=== PATIENT | male | born 1945 | race Caucasian/White ===

== ENCOUNTER → 2017-09-22 14:02 | Outpatient (CLI) | payer OTHER, SELFPAY ==
--- NOTE | 2017-09-22 | DI.US.S_ITS ---
PROCEDURE: US PERIPH VENOUS LOW EXTREM LT INDICATIONS: HISTORY OF DEEP VEIN THROMBOSIS TECHNIQUE: Real-time imaging, as well as color and pulse Doppler interrogation, were performed of the lower extremity deep veins from the inguinal ligament to the popliteal fossa. COMPARISON: None. FINDINGS: Nonocclusive, chronic appearing echogenic thrombus within the mid to distal superficial femoral and popliteal veins suggesting chronic DVT. Common femoral vein is patent. IMPRESSION: Chronic deep venous thrombosis involving the superficial femoral-popliteal veins. Dictated by: Kush AUGUSTINE Interpreted: Aldo Eaton MD on 09/22/2017 at 14:43 Approved by: Aldo Eaton M.D. on 09/22/2017 at 17:25
== END ==
PROVIDERS: Visit Provider Internal Medicine
DX: I82.512 Chronic embolism and thrombosis of left femoral vein (principal)
CPT/HCPCS: 93971

== ENCOUNTER 2020-09-20 12:34 | Emergency (ER) | payer OTHER, SELFPAY ==
[2020-09-20] VITALS (14 sets, daily range): BP systolic 153–209; BP diastolic 75–100; PULSE 57–79; RESP 13–22; TEMP 36.5; O2SAT 99–100; BMI 22.4
--- NOTE | 2020-09-20 12:45 | DI.RAD.S_ITS ---
PROCEDURE: XR CHEST 1V INDICATIONS: HTN emergency TECHNIQUE: One view of the chest was acquired. COMPARISON: [facility] [place], CR, XR SHOULDER 2+ VIEWS RIGHT, 06/14/2020, 14:47. FINDINGS: Surgical changes and devices: None. Lungs and pleura: Lungs appear clear. Question of blunting of the left costophrenic angle. No pneumothorax. Mediastinum: Mediastinal contours appear normal. Heart size is normal. Bones and chest wall: No suspicious bony lesions. Suspected prior right clavicle fracture. Overlying soft tissues appear unremarkable. IMPRESSION: Question of blunting of the left costophrenic angle. This could represent trace effusion. Suspected prior right clavicle fracture. Dictated by: Peter Collado M.D. on 09/20/2020 at 13:07 Approved by: Peter Collado M.D. on 09/20/2020 at 13:09
[2020-09-20 12:51] LABS: Add Manual Diff / Slide Review NO; Basophils Absolute Auto 0 /uL (0-100); Basophils Percent Auto 0.6 % (0-2); Eosinophils Absolute Auto 100 /uL (0-450); Eosinophils Percent Auto 2.4 % (2-4); Hematocrit 44.1 % (41-53); Hemoglobin 14.8 g/dL (13.5-17.5); Lymphocytes Absolute Auto 800 /uL (1100-4500); Lymphocytes Percent Auto 13.3 % (25-40); Mean Corpuscular HGB Conc 33.6 % (30-36); Mean Corpuscular Hemoglobin 32.4 PG (26-34); Mean Corpuscular Volume 96.3 fL (80-100); Monocytes Absolute Auto 800 /uL (0-900); Monocytes Percent Auto 14.4 % (3-14); Neutrophils Absolute Auto 3900 /uL (1500-7000); Neutrophils Percent Auto 69.3 % (50-75); Platelet Count 194 X10^3/uL (150-400); Red Blood Cell Count 4.57 X10^6/uL (4.5-5.9); White Blood Cell Count 5.7 X10^3/uL (4.5-11.0)
[2020-09-20] MEDS: SODIUM CHLORIDE 0.9% 1,000 ML 125 ML IV (13:06)
[2020-09-20 13:08] LABS: Alanine Aminotransferase 15 IU/L (<50); Albumin 4.3 g/dL (3.5-5.0); Albumin Globulin Ratio 1.5 (1.0-2.8); Alkaline Phosphatase 42 U/L (38-126); Aspartate Aminotransferase 30 IU/L (17-59); BUN Creatinine Ratio 19.5 (6-22); Bilirubin Total 0.8 mg/dL (0.2-1.3); Blood Urea Nitrogen 15 mg/dL (9-20); Calcium 9.4 mg/dL (8.4-10.2); Carbon Dioxide 26 mmol/L (22-32); Chloride 96 mmol/L (98-107); Creatine Kinase 117 U/L (55-170); Estimated Glomerular Filt Rate > 60.0 mL/min (>60); Globulin 2.9 g/dL (1.7-4.1); Glucose 151 mg/dL (80-110); HEMOLYSIS < 15 (0-50); Sodium 130 mmol/L (137-145); Total Protein 7.2 g/dL (6.3-8.2)
--- NOTE | 2020-09-20 13:14 | ED.DIZZY ---
HPI - Dizziness General Chief Complaint: Dizziness Stated Complaint: Bent over, felt dizzy Time Seen by Provider: 09/20/20 12:44 Source: patient Mode of arrival: EMS Limitations: no limitations History of Present Illness HPI Narrative: 75-year-old male nonsmoker with history of what sounds like a bifascicular block presents by EMS for evaluation of a very brief episode of dizziness earlier today. He states he had a very normal morning, was quite active in even engaged in a strenuous workout. He had completed his activities and was working in the garden when he went into the [place] and leaned over to pick something up at which point he became dizzy as if things were spinning for 5-7 seconds. It went away as quick as it started and has not been present since. He denies any recent trauma or head injuries. He has got no blurred vision or trouble with speech. He has no chest pain, palpitations or shortness of breath. He denies any abdominal pain, nausea or vomiting. He denies recent air travel, upper respiratory symptoms including runny nose, sneezing or ear pain. He is otherwise well and free of complaint. He states that he has had a few episodes not on like this over the past 20 years or so but they are very sporadic. He has seen a custom bike builder about this and they have had discussions about the potential of monitoring but because his symptoms are so brief and widespread that they elected not to as it is not likely to be helpful. complaint: dizziness Onset (ago): hour(s) Related Data Allergies Allergy/AdvReac Type Severity Reaction Status Date / Time No Known Drug Allergies Allergy Verified 09/20/20 12:42 Review of Systems Constitutional Constitutional: Denies chills, Denies fatigue, Denies fever(s), Denies frequent falls, Denies lethargy and Denies weakness Eyes Eyes: Denies change in vision, Denies eye discharge, Denies irritation and Denies loss of vision ENT Ears, Nose, Mouth, and Throat: Denies change in voice, Reports dizziness, Denies neck pain, Denies sore throat and Denies throat swelling Cardiovascular Cardiovascular: Denies chest pain, Denies irregular heart rhythm, Denies lightheadedness, Denies palpitations, Denies dyspnea, Denies dyspnea on exertion and Denies orthopnea Respiratory Respiratory: Denies cough, Denies dyspnea, Denies dyspnea on exertion and Denies wheezing Gastrointestinal Gastrointestinal: Denies abdominal pain, Denies change in bowel habits, Denies diarrhea, Denies nausea and Denies vomiting Musculoskeletal Musculoskeletal: Denies neck pain and Denies numbness Integumentary/Breasts Skin/Breast: Denies pruritus, Denies erythema, Denies rash and Denies wounds Neurologic Neurologic: Denies behavioral changes, Denies confusion, Reports dizziness, Denies frequent falls, Denies loss of vision, Denies numbness and Denies weakness Psychiatric Psychiatric: Denies anxiety, Denies behavioral changes, Denies confusion, Denies depression, Denies homicidal ideation and Denies suicidal ideation Endocrine Endocrine: Denies fatigue, Denies flushing and Denies palpitations Hematologic/Lymphatic Hematologic/Lymphatic: Denies easy bruising Allergic/Immunologic Allergic/Immunologic: Denies urticaria, Denies throat swelling and Denies wheezing Patient History Social History Smoking Status: Unknown if ever smoked Smoking Status: Unknown if ever smoked alcohol intake frequency: holidays/special occasions only Substance Use Type: does not use Exam Narrative Exam Narrative: GENERAL: [75] year old patient appears stated age. Well-developed patient, in mild distress. HEAD: Atraumatic. Normocephalic. EYES: Pupils equal round and reactive. Extraocular motions intact. No scleral icterus. No injection or drainage. ENT: Nose without bleeding, purulent drainage. Throat without erythema, tonsillar hypertrophy or exudate. Airway patent. NECK: Trachea midline. Non tender CARDIOVASCULAR: Regular rate and rhythm without murmurs, gallops, or rubs. RESPIRATORY: Clear to auscultation. Breath sounds equal bilaterally. No wheezes, rales, or rhonchi. GASTROINTESTINAL: Abdomen soft, non-tender, nondistended. EXTREMITIES: No edema or joint tenderness. BACK: Nontender without deformity or crepitance. No flank tenderness. NEURO: AOx3. SKIN: No rash or erythema of visible areas NIH Stroke Scale 1a. LOC: Patient is alert and keenly responsive (0) 1b. LOC Questions: Patient answers both LOC questions accurately (0) 1c. LOC Commands: Patient performs both tasks correctly (0) 2. Best Gaze: Normal (0) 3. Visual: No visual loss (0) 4. Facial palsy: Normal symmetrical movements (0) 5. Motor arm: No drift (0) 6. Motor leg: No drift (0) 7. Limb ataxia: Absent (0) 8. Sensory: Normal (0) 9. Best language: No aphasia; normal (0) 10. Dysarthria: Normal (0) 11. 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) Stat Sodium Chloride (Normal Saline 0.9%) 1,000 mls @ 125 mls/hr IV CONT SHELBY Last Admin: 09/20/20 13:06 Dose: 125 mls/hr Documented by: NAYANA Vital Signs Vital signs: Vital Signs - 8 hr 09/20/20 12:38 09/20/20 12:42 09/20/20 12:45 Temperature 97.7 F Pulse Rate 79 72 67 Respiratory Rate 13 15 18 Blood Pressure 209/100 H 208/97 H Pulse Oximetry 99 100 100 09/20/20 13:00 09/20/20 13:16 09/20/20 13:30 Temperature Pulse Rate 62 60 59 L Respiratory Rate 15 22 17 Blood Pressure 194/85 H 177/85 H 183/81 H Pulse Oximetry 100 100 100 09/20/20 13:45 09/20/20 14:00 09/20/20 14:20 Temperature Pulse Rate 57 L 57 L 59 L Respiratory Rate 18 19 20 Blood Pressure 168/83 H 153/81 H 205/89 H Pulse Oximetry 100 100 99 09/20/20 14:30 09/20/20 14:31 09/20/20 14:45 Temperature Pulse Rate 59 L 65 65 Respiratory Rate 16 19 19 Blood Pressure 183/88 H 178/84 H Pulse Oximetry 100 100 99 09/20/20 15:00 09/20/20 15:15 Temperature Pulse Rate 66 62 Respiratory Rate 17 18 Blood Pressure 182/75 H Pulse Oximetry 100 99 MDM - Dizziness Lab Data Result diagrams: 09/20/20 12:40 09/20/20 12:40 Labs: Lab Results 09/20/20 09/20/20 09/20/20 Range/Units 12:40 12:40 12:49 WBC 5.7 (4.5-11.0) X10^3/uL RBC 4.57 (4.5-5.9) X10^6/uL Hgb 14.8 (13.5-17.5) g/dL Hct 44.1 (41-53) % MCV 96.3 (80-100) fL MCH 32.4 (26-34) PG MCHC 33.6 (30-36) % RDW 13.0 (11.6-14.8) % Plt Count 194 (150-400) X10^3/uL Neut % (Auto) 69.3 (50-75) % Lymph % (Auto) 13.3 L (25-40) % [place] % (Auto) 14.4 H (3-14) % Eos % (Auto) 2.4 (2-4) % Baso % (Auto) 0.6 (0-2) % Neut # (Auto) 3900 (2725-2904) /uL Lymph # (Auto) 800 L (3187-4951) /uL [place] # (Auto) 800 (0-900) /uL Eos # (Auto) 100 (0-450) /uL Baso # (Auto) 0 (0-100) /uL Sodium 130 L (137-145) mmol/L Potassium 4.0 (3.4-5.1) mmol/L Chloride 96 L (98-107) mmol/L Carbon Dioxide 26 (22-32) mmol/L BUN 15 (9-20) mg/dL Creatinine 0.77 (0.66-1.25) mg/dL Estimated GFR > 60.0 (>60) mL/min BUN/Creatinine Ratio 19.5 (6-22) Glucose 151 H (80-110) mg/dL Calcium 9.4 (8.4-10.2) mg/dL Total Bilirubin 0.8 (0.2-1.3) mg/dL AST 30 (17-59) IU/L ALT 15 (<50) IU/L Alkaline Phosphatase 42 (38-126) U/L Total Creatine Kinase 117 (55-170) U/L CK-MB (CK-2) 2.47 H (<2.37) ng/mL CK-MB (CK-2) Rel Index 2.1 (1.5-5.0) % Troponin I < 0.012 (0.01-0.034) ng/mL NT-Pro-B Natriuret Pep 190 (<450) pg/mL Total Protein 7.2 (6.3-8.2) g/dL Albumin 4.3 (3.5-5.0) g/dL Globulin 2.9 (1.7-4.1) g/dL Albumin/Globulin Ratio 1.5 (1.0-2.8) SARS-CoV-2 (PCR) Negative (Negative) Imaging Data Chest x-ray: Radiologist's Impression: Billy Garcia 75 M [address] [id number] ReportSigned Patient: Padilla Garcia#: [id number]: 5Acct:[id number]/Sex: 75 / MDate of Service: 09/20/20Loc: EDAccession Number: [id number] Procedure: XR chest 1V Ordering Provider: Sukhdeep Garcia D.O. PROCEDURE: XR CHEST 1V INDICATIONS: HTN emergency TECHNIQUE: One view of the chest was acquired. COMPARISON: [facility] [place], CR, XR SHOULDER 2+ VIEWS RIGHT, 06/14/2020, 14:47. FINDINGS: Surgical changes and devices: None. Lungs and pleura: Lungs appear clear. Question of blunting of the left costophrenic angle. No pneumothorax. Mediastinum: Mediastinal contours appear normal. Heart size is normal. Bones and chest wall: No suspicious bony lesions. Suspected prior right clavicle fracture. Overlying soft tissues appear unremarkable. IMPRESSION: Question of blunting of the left costophrenic angle. This could represent trace effusion. Suspected prior right clavicle fracture. Dictated by: Peter Collado M.D. on 09/20/2020 at 13:07 Approved by: Peter Collado M.D. on 09/20/2020 at 13:09 [facility] Narrative Medical decision making narrative: Patient had a very brief (5-7 seconds) episode of dizziness after leaning over. No recurrence of symptoms. Otherwise well. Neurologic exam at baseline. Patient is hypertensive on arrival but no longer symptomatic, it would seem very unlikely the blood pressure is related. Labs are very reassuring. Return precautions given and questions answered to their apparent satisfaction Discharge Plan Departure Patient Disposition: Home Clinical Impression: Dizziness Instructions: DI for Dizziness-Nonvertigo Activity Restrictions/Additional Instructions: *You have been diagnosed with [episode of dizziness] *What to do: *Please continue to take your regular medications as directed. [ ] New medication prescriptions sent to your pharmacy: [ ] [ ] New medication written as a paper prescription [ ] No new medications given *Please follow up with your primary care provider in 2-3 days, call for an appointment. Let them know you were seen in the Emergency Department and that we ask that you be seen in follow up. We will electronically transmit a record of today's note if your PCP is in our system *If you do not have a primary care provider please contact the [facility] Resource line at [phone]. They will ask some questions about your medical history and help get you set up with a doctor in the community. *Return to Emergency Department if you should have any new, worsening or concerning symptoms, such as [fever greater than 101 F, shaking chills, worsening pain, persistent vomiting or other bothersome symptoms] Referrals: Briana Thayer MD [Primary Care Provider] -
[2020-09-20 13:18] LABS: NT-proBNP (BNP-Adult 18+) 190 pg/mL (<450); Troponin I < 0.012 ng/mL (0.01-0.034)
[2020-09-20 13:23] LABS: CKMB % Relative Index 2.1 % (1.5-5.0); Creatine Kinase MB 2.47 ng/mL (<2.37)
[2020-09-20 13:46] LABS: COVID19 - ADMIT (NP swab/PCR) Negative (Negative)
== END 2020-09-20 15:29 | disposition home or self-care (01) ==
PROVIDERS: Emergency Provider Emergency Medicine; PCP Internal Medicine
DX: R42 Dizziness and giddiness (principal); Z20.822 Contact with and (suspected) exposure to COVID-19; I10 Essential (primary) hypertension
CPT/HCPCS: 36415; 71045; 80053; 82550; 82553; 83880; 84484; 85025; 87635; 93005; 93010; 99284; C9803

== ENCOUNTER 2023-09-23 18:56 | Inpatient (IN) | payer OTHER, SELFPAY ==
[2023-09-23] VITALS (13 sets, daily range): BP systolic 178–227; BP diastolic 77–98; PULSE 61–67; RESP 14–28; TEMP 36.7; O2SAT 95–99; BMI 23.1
--- NOTE | 2023-09-23 19:10 | EKG_ITS ---
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
[2023-09-23 19:21] LABS: Add Manual Diff / Slide Review NO; Basophils Absolute Auto 0 /uL (0-100); Basophils Percent Auto 0.2 % (0-2); Eosinophils Absolute Auto 0 /uL (0-450); Eosinophils Percent Auto 0.1 % (2-4); Hematocrit 47.2 % (41-53); Lymphocytes Absolute Auto 600 /uL (1100-4500); Mean Corpuscular HGB Conc 33.9 % (30-36); Mean Corpuscular Hemoglobin 32.7 PG (26-34); Mean Corpuscular Volume 96.4 fL (80-100); Monocytes Absolute Auto 800 /uL (0-900); Neutrophils Absolute Auto 10000 /uL (1500-7000); Neutrophils Percent Auto 87.7 % (50-75); Platelet Count 204 X10^3/uL (150-400); Red Blood Cell Count 4.89 X10^6/uL (4.5-5.9); Red Cell Distribution Width 13.5 % (11.6-14.8); White Blood Cell Count 11.4 X10^3/uL (4.5-11.0)
--- NOTE | 2023-09-23 19:22 | ED_ITS ---
HPI - General Adult General Chief complaint: Abdominal Pain Stated complaint: abd pain Time Seen by Provider: 09/23/23 18:59 Source: patient Mode of arrival: Ambulatory History of Present Illness HPI narrative: 78-year-old gentleman with a history of bifascicular block, hypertension but otherwise healthy who presents complaining of severe abdominal pain that started last night initially described a bit of burning he took some Tums with no effect, tried some Flaca-Vaughan that did seem to help a bit more. He had a bowel movement this morning and again this afternoon which did not relieve his pain. He states he has not been passing much flatus but has been having quite a bit of burping which is unusual for him. He notes that his mouth has been so dry that he tried to eat some crackers this evening and was not able to do so. He has been drinking water all day. He describes moderate nausea. The abdominal pain he describes as through the entire middle of his belly constant and progressively worsening. No chest pain, palpitations, fevers, lower extremity edema are noted. Related Data Allergies Allergy/AdvReac Type Severity Reaction Status Date / Time No Known Drug Allergies Allergy Verified 09/23/23 19:09 Review of Systems Review of Systems Narrative: Pertinent positive and negative findings as per HPI Patient History Medical History (Updated 09/24/23 @ 00:41 by Lizbeth Kidd MD) Bifascicular block Hypertension Social History Smoking Status: Never smoker Smoking Status: Never smoker alcohol intake frequency: 0-2 drinks per day Alcohol type: beer Substance Use Type: does not use Exam Initial Vital Signs Initial Vital Signs: Vital Signs Pulse Rate 67 09/23/23 19:01 Pulse Oximetry 99 09/23/23 19:01 General: Healthy appearing, in mild distress. Able to give a complete and coherent history. Well-nourished well-developed HEENT: Dry mucous membranes, normal sclera with reactive pupils, Respiratory: Lungs are clear to auscultation, no wheezing no rales no rhonchi. Full and symmetrical air movement Cardiac: Regular rate and rhythm no murmurs no bruits Abdomen: Soft, mild midabd distention with mild tenderness to palpation but no rebound or guarding, decreased bowel tones Skin: Warm and dry, no rashes Neurologic: Grossly neurologically intact with no obvious asymmetries or abnormalities Extremities: No trauma, well perfused, no lower extremity edema but he does have mild chronic venous stasis changes Psych: Cooperative, appropriate insight and affect Course Orders Ordered: ED Orders 09/23/23 19:07 EKG-12 Lead Stat 09/23/23 19:08 Complete Blood Count AUTO DIFF Stat Comprehensive Metabolic Panel Stat Lipase Stat 09/23/23 20:50 Urine Microscopic Stat 09/23/23 21:28 CT abdomen pelvis w con Stat Hydromorphone HCl (Hydromorphone 0.5 Mg Inj) 0.5 mg IV Q15MIN PRN PRN Reason: Pain, Last Admin: 09/23/23 19:54 Dose: 0.5 mg Documented By: Ondansetron HCl (Ondansetron 4 Mg/2 Ml Inj) 4 mg IV NOW PRN PRN Reason: Nausea And Vomiting Last Admin: 09/23/23 19:53 Dose: 4 mg Documented By: Ondansetron HCl (Ondansetron 4 Mg Odt) 4 mg PO NOW PRN PRN Reason: Nausea And Vomiting Discontinued Medications Sodium Chloride (Normal Saline 0.9%) 1,000 mls @ 1,000 mls/hr IV BOLUS ONE Stop: 09/23/23 20:36 Last Infusion: 09/23/23 20:59 Dose: Infused Documented By: Admin: 09/23/23 19:53 Dose: 1,000 mls/hr Documented By: Vital Signs Vital signs: Vital Signs - 8 hr 09/23/23 19:01 09/23/23 19:02 09/23/23 19:02 Temperature Pulse Rate 67 64 Respiratory Rate Blood Pressure 227/97 H Pulse Oximetry 99 98 Oxygen Delivery Method 09/23/23 19:03 09/23/23 19:30 09/23/23 19:30 Temperature 98.0 F Pulse Rate 65 66 Respiratory Rate 18 28 H Blood Pressure 227/97 H 213/98 H Pulse Oximetry 99 98 Oxygen Delivery Method Room Air 09/23/23 20:00 09/23/23 20:00 09/23/23 20:30 Temperature Pulse Rate 61 61 Respiratory Rate 14 16 Blood Pressure 182/83 H Pulse Oximetry 97 99 Oxygen Delivery Method 09/23/23 20:30 09/23/23 21:00 09/23/23 21:01 Temperature Pulse Rate 61 Respiratory Rate 16 Blood Pressure 209/88 H 200/81 H Pulse Oximetry 98 Oxygen Delivery Method 09/23/23 21:01 09/23/23 21:30 09/23/23 21:30 Temperature Pulse Rate 63 62 Respiratory Rate 21 16 Blood Pressure 204/83 H Pulse Oximetry 95 95 Oxygen Delivery Method 09/23/23 22:04 09/23/23 22:30 09/23/23 23:00 Temperature Pulse Rate 64 62 64 Respiratory Rate 23 19 26 H Blood Pressure Pulse Oximetry 98 96 96 Oxygen Delivery Method 09/23/23 23:12 09/23/23 23:12 Temperature Pulse Rate 62 Respiratory Rate 19 Blood Pressure 178/77 H Pulse Oximetry 96 Oxygen Delivery Method Medical Decision Making Lab Data 09/23/23 19:08 09/23/23 19:08 Labs: Lab Results 09/23/23 09/23/23 Range/Units 19:08 20:50 WBC 11.4 H (4.5-11.0) X10^3/uL RBC 4.89 (4.5-5.9) X10^6/uL Hgb 16.0 (13.5-17.5) g/dL Hct 47.2 (41-53) % MCV 96.4 (80-100) fL MCH 32.7 (26-34) PG MCHC 33.9 (30-36) % RDW 13.5 (11.6-14.8) % Plt Count 204 (150-400) X10^3/uL Neut % (Auto) 87.7 H (50-75) % Lymph % (Auto) 5.0 L (25-40) % [place] % (Auto) 7.0 (3-14) % Eos % (Auto) 0.1 L (2-4) % Baso % (Auto) 0.2 (0-2) % Neut # (Auto) 79541 H (4599-3608) /uL Lymph # (Auto) 600 L (8222-3410) /uL [place] # (Auto) 800 (0-900) /uL Eos # (Auto) 0 (0-450) /uL Baso # (Auto) 0 (0-100) /uL Sodium 135 L (137-145) mmol/L Potassium 4.4 (3.4-5.1) mmol/L Chloride 98 (98-107) mmol/L Carbon Dioxide 29 (22-32) mmol/L BUN 20 (9-20) mg/dL Creatinine 0.89 (0.66-1.25) mg/dL Estimated GFR > 60 (>60) mL/min BUN/Creatinine Ratio 22.5 H (6-22) Glucose 106 (80-110) mg/dL Calcium 9.8 (8.4-10.2) mg/dL Total Bilirubin 1.1 (0.2-1.3) mg/dL AST 37 (17-59) IU/L ALT 19 (<50) IU/L Alkaline Phosphatase 57 (38-126) U/L Total Protein 8.3 H (6.3-8.2) g/dL Albumin 4.9 (3.5-5.0) g/dL Globulin 3.4 (1.7-4.1) g/dL Albumin/Globulin Ratio 1.4 (1.0-2.8) Lipase 55 (23-300) U/L Urine RBC None seen (0-5/HPF) Urine WBC None seen (0-5/HPF) Ur Squamous Epith Cells 0-1 /hpf (0-5/HPF) Amorphous Sediment 2+ Urine Bacteria None seen (None) Ur Culture Indicated? Cult not indicated Vol Urine Centrifuged 10ml (spun) Urine Dip Bedside Urine Glucose Negative Bedside Urine Bilirubin - Negative Bedside Urine Ketone ++ 40 Urine Specific [place] 1.015 Bedside Urine Occult Blood - Negative Bedside Urine pH 7.5 Bedside Urine Protein - Negative Bedside Urine Urobilinogen - Negative Bedside Urine Nitrite - Negative Bedside Urine Leukocytes - Negative Esterase Point of care testing: Urine Dip Bedside Urine Glucose Negative Bedside Urine Bilirubin - Negative Bedside Urine Ketone ++ 40 Urine Specific [place] 1.015 Bedside Urine Occult Blood - Negative Bedside Urine pH 7.5 Bedside Urine Protein - Negative Bedside Urine Urobilinogen - Negative Bedside Urine Nitrite - Negative Bedside Urine Leukocytes - Negative Esterase Imaging Data CT scan - abdomen/pelvis: Radiologist's Impression: PROCEDURE: CT ABDOMEN PELVIS W CON INDICATIONS: mid abdominal pain TECHNIQUE: After the administration of intravenous contrast, axial sections acquired from the lung bases to the pubic symphysis. Coronal and sagittal reformats were performed. For radiation dose reduction, the following was used: automated exposure control, adjustment of mA and/or kV according to patient size. COMPARISON: None. FINDINGS: Image quality: Diagnostic. Lower Chest: No significant findings. ABDOMEN: Liver: No solid mass. Gallbladder: No radiopaque gallstones or wall thickening. Biliary ducts: No biliary dilation. Pancreas: No ductal dilation. Spleen: Size is within normal limits. Calcified splenic granulomas. Adrenal Glands: No adrenal nodules. Kidneys and Ureters: No hydronephrosis. No solid mass. No complex renal cystic lesion which requires follow up. Bilateral ureters appear non-dilated throughout its expected course without ureteral stones visualized. Stomach and Bowel: Colonic diverticulosis without acute diverticulitis. No appendix. There are multiple moderately dilated loops of small bowel with differential air-fluid level. No significant wall thickening. A definite transition point not visualized although there is a possible region of transition point in the left mid abdomen (22/series 3). Peritoneum: No abnormal intraperitoneal fluid. No free air. Ventral Wall: No significant ventral hernia. Abdominal Nodes: No retroperitoneal or mesenteric adenopathy by size criteria. Vessels: Aorta and inferior vena cava are normal in size. PELVIS: Pelvic Organs: Unremarkable. Bladder: No bladder wall thickening, accounting for underdistention. Pelvic Nodes: No enlarged lymph nodes. Miscellaneous: No inguinal hernias are seen. Bones: No aggressive osseous abnormality. No acute vertebral body compression fractures. Multilevel spondylitic changes throughout the imaged spine. No suspicious osseous lesions. IMPRESSION: Findings consistent with small-bowel obstruction with suspected transition point noted in the left mid abdomen. Colonic diverticulosis without acute diverticulitis. Normal appendix. Other chronic findings as above. Dictated by: Tommy Francis M.D. on 09/23/2023 at 23:40 MDM Narrative Medical decision making narrative: CC: Mid abdominal pain with distention increasing since last night Complicating co-morbidities: Hypertension, patient does have a history of a Schatzki ring that is apparently in need of dilation and he has been discussing that with his it operations specialist recently Data collected from: patient, Medical records reviewed: Minimal records are available. He was seen in 2018 after a brief dizzy spell that had no significant findings are resolution Differential considered: Bowel obstruction, internal hernia, abscess, neoplastic process Exam documented above, pertinent findings include: Patient is alert and cooperative. Mild distention to the abdomen with tenderness throughout the entire center portion of the abdomen but no rebound or guarding. No flank pain. Lab Test results independently reviewed as above. Pertinent findings: CBC shows mild leukocytosis with left shift, no anemia Chemistries are reassuring with normal liver studies Urine dip Is unremarkable Independently reviewed EKG: Sinus rhythm at a rate of 63. Bifascicular block. No acute ischemic changes Imaging studies independently reviewed: small-bowel obstruction with suspected transition point noted in the left mid abdomen. Consultations: Discussed with Dr. Patton Treatments: NG tube placement, fluids, Dilaudid, Zofran Procedure: NG tube placement by physician. Initial placement coiled in the back of his throat. Using lidocaine gel and appropriate positioning, the NG tube was repositioned and measured, placed through the left nostril and with gentle pressure was advanced into the stomach. Placement was confirmed with x- ray. Patient tolerated the procedure well. Discussion: 78-year-old otherwise healthy gentleman hypertension is his only issue who presents with increasing abdominal pain and CT scan shows small bowel obstruction. NG tube was placed after long discussion with the patient his explaining the anatomy in the concerns as well as anticipated need for hospital admission. Care is reviewed with Dr. Patton who will consult on the patient tomorrow. Patient will be admitted to the medicine service for conservative management of his small bowel obstruction. Care is discussed with Dr. Ridley who will admit the patient. Discharge Plan Departure Patient Disposition: Admitted As Inpatient Clinical Impression: Small bowel obstruction
[2023-09-23 19:38] LABS: Alanine Aminotransferase 19 IU/L (<50); Albumin 4.9 g/dL (3.5-5.0); Albumin Globulin Ratio 1.4 (1.0-2.8); Alkaline Phosphatase 57 U/L (38-126); Aspartate Aminotransferase 37 IU/L (17-59); BUN Creatinine Ratio 22.5 (6-22); Bilirubin Total 1.1 mg/dL (0.2-1.3); Blood Urea Nitrogen 20 mg/dL (9-20); Calcium 9.8 mg/dL (8.4-10.2); Carbon Dioxide 29 mmol/L (22-32); Chloride 98 mmol/L (98-107); Estimated Glomerular Filt Rate > 60 mL/min (>60); Globulin 3.4 g/dL (1.7-4.1); Glucose 106 mg/dL (80-110); HEMOLYSIS < 15 (0-50); Lipase 55 U/L (23-300); Potassium 4.4 mmol/L (3.4-5.1); Sodium 135 mmol/L (137-145); Total Protein 8.3 g/dL (6.3-8.2)
[2023-09-23] MEDS: SODIUM CHLORIDE 0.9% 1,000 ML 1000 ML IV (19:53)
[2023-09-23] MEDS: ONDANSETRON 4 MG/2 ML INJ IV (19:53)
[2023-09-23] MEDS: HYDROMORPHONE 0.5 MG INJ IV (19:54)
[2023-09-23 21:11] LABS: Amorphous Sediment Urine 2+; Bacteria Urine None Seen; RBC Urine None Seen (0-5/HPF); Squamous Epithelial Cell Urine 0-1 /HPF (0-5/HPF); Urine Volume 10mL (spun); WBC Urine None Seen (0-5/HPF)
[2023-09-23 21:12] LABS: Culture Indicated Urine Cult Not Indicated
--- NOTE | 2023-09-23 21:28 | DI.CT.S_ITS ---
PROCEDURE: CT ABDOMEN PELVIS W CON INDICATIONS: mid abdominal pain TECHNIQUE: After the administration of intravenous contrast, axial sections acquired from the lung bases to the pubic symphysis. Coronal and sagittal reformats were performed. For radiation dose reduction, the following was used: automated exposure control, adjustment of mA and/or kV according to patient size. COMPARISON: None. FINDINGS: Image quality: Diagnostic. Lower Chest: No significant findings. ABDOMEN: Liver: No solid mass. Gallbladder: No radiopaque gallstones or wall thickening. Biliary ducts: No biliary dilation. Pancreas: No ductal dilation. Spleen: Size is within normal limits. Calcified splenic granulomas. Adrenal Glands: No adrenal nodules. Kidneys and Ureters: No hydronephrosis. No solid mass. No complex renal cystic lesion which requires follow up. Bilateral ureters appear non-dilated throughout its expected course without ureteral stones visualized. Stomach and Bowel: Colonic diverticulosis without acute diverticulitis. No appendix. There are multiple moderately dilated loops of small bowel with differential air-fluid level. No significant wall thickening. A definite transition point not visualized although there is a possible region of transition point in the left mid abdomen (22/series 3). Peritoneum: No abnormal intraperitoneal fluid. No free air. Ventral Wall: No significant ventral hernia. Abdominal Nodes: No retroperitoneal or mesenteric adenopathy by size criteria. Vessels: Aorta and inferior vena cava are normal in size. PELVIS: Pelvic Organs: Unremarkable. Bladder: No bladder wall thickening, accounting for underdistention. Pelvic Nodes: No enlarged lymph nodes. Miscellaneous: No inguinal hernias are seen. Bones: No aggressive osseous abnormality. No acute vertebral body compression fractures. Multilevel spondylitic changes throughout the imaged spine. No suspicious osseous lesions. IMPRESSION: Findings consistent with small-bowel obstruction with suspected transition point noted in the left mid abdomen. Colonic diverticulosis without acute diverticulitis. Normal appendix. Other chronic findings as above. Dictated by: Tommy Francis M.D. on 09/23/2023 at 23:40 Approved by: Tommy Francis M.D. on 09/23/2023 at 23:46
[2023-09-24] VITALS (14 sets, daily range): BP systolic 116–184; BP diastolic 45–86; PULSE 57–77; RESP 12–20; TEMP 36.2–36.8; O2SAT 91–99; BMI 23.1
--- NOTE | 2023-09-24 | DI.RAD.S_ITS ---
PROCEDURE: XR ABDOMEN 1V INDICATIONS: POST SURGERY NEEDLE COUNT VERIFICATION TECHNIQUE: One view of the abdomen acquired. COMPARISON: [facility], CR, XR ABDOMEN 1V, 09/24/2023, 20:34. FINDINGS: Surgical changes and devices: Multiple skin javier noted along vertical ventral abdominal incision. Additional skin javier noted in the right lower quadrant and right lower pelvis. No curvilinear radiopaque soft tissue densities to suggest presence of a surgical needle. Bowel: Bowel gas pattern is normal. Soft tissues: No suspicious abdominal calcifications. Visualized solid organ contours appear normal in size. Bones: No suspicious bony lesions. IMPRESSION: No acute abnormality. Multiple surgical skin javier. No other radiopaque soft tissue foreign body identified. Dictated by: Tommy Francis M.D. on 09/24/2023 at 21:32 Approved by: Tommy Francis M.D. on 09/24/2023 at 21:33
--- NOTE | 2023-09-24 | PATH_ITS ---
[facility] Accession Number: [id number] No. of containers..01 Tissue . 01 Material submitted: . small bowel - SMALL BOWEL, SEGMENTAL RESECTION . 01 Diagnosis: SMALL BOWEL, SEGMENTAL RESECTION: 1. Segment of small bowel with congestion, marked active inflammation including inflammatory exudates, and areas of mucosal necrosis. 2. Two benign reactive lymph nodes. See comment. . Specimen Comments: Mucosal necrosis focally closely approximates the resection margin. [facility] 09/30/2023 1834 Local . 01 Electronically signed: . Florentino Eden MD, Pathologist NPI- [id number] . 01 Gross description: . Received in formalin labeled with two patient identifiers and designated small bowel, and consists of a 31.5 cm in length by 2.8 cm in diameter segment of small bowel, which is stapled at both ends. The resection margins are arbitrarily differentially inked. The serosal surface is lam, slightly dusky, and diffusely speckled with hemorrhage. The bowel wall ranges from 0.1 up to 0.2 cm in thickness, and there is an 11 cm in length central portion of bowel which is slightly thinned, this area is further located 7.5 and 10.5 cm from the nearest resection margin. The mucosa has the normal intestinal folds and is diffusely hemorrhagic. No perforation, luminal narrowing, or constrictions are appreciated. There is an abundant amount of yellow lobulated mesenteric adipose tissue, and sectioning through the mesenteric vessels shows no areas of clot or occlusion. There are two lymph node candidates measuring 0.2 and 0.4 cm in greatest dimension. [employer] Structural [employer] sections are submitted: . A1: Differentially inked resection margins. A2: Aircraft Structural Design Engineer sections from mid portion of slightly thinned bowel. A3: Additional random section of bowel and two lymph node candidates. ([id number]) /MRV 09/30/2023 1834 Local . 01 Pathologist provided ICD-10: K56.2 . 01 CPT . 374698 Specimen Comment: A courtesy copy of this report has been sent to [phone] Performed at: [address] [id number] MD Florentino Eden MD Phone: [phone]
[2023-09-24] MEDS: HYDROMORPHONE 0.5 MG INJ IV ×4 (00:55→15:21)
[2023-09-24] MEDS: SODIUM CHLORIDE 0.9% 1,000 ML 150 ML IV (00:56)
[2023-09-24] MEDS: LIDOCAINE 2% (GLYDO) 6 ML GEL TOP ×2 (00:57→01:58)
--- NOTE | 2023-09-24 01:15 | PC.NURSE ---
Resitance found when placing NG tube, Bernabe CRUZ at bedside.
--- NOTE | 2023-09-24 02:05 | DI.RAD.S_ITS ---
PROCEDURE: XR CHEST 1V INDICATIONS: NG placement TECHNIQUE: One view of the chest was acquired. COMPARISON: [facility], CR, XR CHEST 1V, 09/20/2020, 12:47. FINDINGS: Surgical changes and devices: NG tube tip is projecting in the region of gastroesophageal junction, can be advanced by 5-10 cm. Lungs and pleura: Ill-defined airspace opacities in bilateral infrahilar region are seen concerning for small lower lobe infiltrates. No significant pleural effusion. No gross pneumothorax. Mediastinum: Mediastinal contours appear normal. Heart size is normal. Bones and chest wall: No suspicious bony lesions. Overlying soft tissues appear unremarkable. IMPRESSION: NG tube tip is projecting in the expected location of GE junction, and can be advanced by 5-10 cm. Suggestion of bilateral infrahilar infiltrates versus atelectasis. No pleural effusion or pneumothorax. Dictated by: Raad Hanley M.D. on 09/24/2023 at 8:21 Approved by: Raad Hanley M.D. on 09/24/2023 at 8:22
[2023-09-24] MEDS: DEXTROSE 5%-0.9% NS 1,000 ML 75 ML IV (03:17)
--- NOTE | 2023-09-24 04:22 | P.HP_ITS ---
History of Present Illness History of Present Illness Date Patient Seen: 09/24/23 Time Patient Seen: 04:10 Chief complaint: abd pain Narrative: This patient is a 78 year old male with HTN and bifascicular block who presented to the ER for abdominal pain which had been ongoing for 2 days. He reports severe burning pain for which he tried Tums without relief and states that he has some relief with Flaca seltzer. He denies any exacerbating factors or prior episodes. In the ER, temperature was 98, pulse 62, respirations 18, blood pressure 178/77 and O2 saturation 96% on room air. WBC was 11.4, Hb 16, Hct 47.2, Plt 204, BUN 20, creatinine 0.89, glucose 106. CT abd/pelvis showed findings consistent with a small bowel obstruction with suspicion for a transition point at the left mid abdomen. He is admitted for further medical management and monitoring. [facility] Medical History (Updated 09/24/23 @ 00:41 by Lizbeth Kidd MD) Bifascicular block Hypertension Social History household members: spouse Smoking Status: Never smoker alcohol intake: current Medical History (Updated 09/24/23 @ 00:41 by Lizbeth Kidd MD) Bifascicular block Hypertension Social History household members: spouse Smoking Status: Never smoker alcohol intake: current Medical History (Updated 09/24/23 @ 00:41 by Lizbeth Kidd MD) Bifascicular block Hypertension Comment: Surgical History: Lithotripsy, colonoscopy Family History: Denies any medical problems in his family Social History household members: spouse Tobacco & Substance Use Smoking Status: Never smoker alcohol intake: current Additional Social History additional social history: Lives at home with . Ambulatory without assistance. Code status: Full code. Emergency contact is his Jessenia Garcia . Tobacco Smoking Status: Never smoker Alcohol alcohol intake: current alcohol intake frequency: 0-2 drinks per day Alcohol type: beer Additional Social History additional social history: Lives at home with . Ambulatory without assistance. Code status: Full code. Emergency contact is his Jessenia Garcia . Meds Home Medications and Allergies Home Medications Medication Instructions Recorded Confirmed Type metoprolol succinate 25 mg 25 mg PO DAILY 09/24/23 09/24/23 History tablet,extended release 24 hr Allergies Allergy/AdvReac Type Severity Reaction Status Date / Time No Known Drug Allergies Allergy Verified 09/23/23 19:09 Review of Systems Constitutional Comments: Denies any fever, chills or sweats Eyes Comments: Denies any vision changes Cardiovascular Comments: Denies any chest pain or palpitations Respiratory Comments: Denies any shortness of breath, cough or wheezing Gastrointestinal Comments: Reports abdominal pain, nausea. No vomiting, diarrhea, constipation or blood in the stool. Genitourinary Comments: Denies any dysuria or hematuria. Musculoskeletal Comments: Denies any myalgias or arthralgias Exam Vital Signs (past 8 hours): - 09/23/23 20:30 09/23/23 20:30 09/23/23 21:00 Temperature Pulse Rate 61 61 Respiratory Rate 16 16 Blood Pressure 209/88 H Pulse Oximetry 99 98 Oxygen Delivery Method Oxygen Flow Rate 09/23/23 21:01 09/23/23 21:01 09/23/23 21:30 Temperature Pulse Rate 63 Respiratory Rate 21 Blood Pressure 200/81 H 204/83 H Pulse Oximetry 95 Oxygen Delivery Method Oxygen Flow Rate 09/23/23 21:30 09/23/23 22:04 09/23/23 22:30 Temperature Pulse Rate 62 64 62 Respiratory Rate 16 23 19 Blood Pressure Pulse Oximetry 95 98 96 Oxygen Delivery Method Oxygen Flow Rate 09/23/23 23:00 09/23/23 23:12 09/23/23 23:12 Temperature Pulse Rate 64 62 Respiratory Rate 26 H 19 Blood Pressure 178/77 H Pulse Oximetry 96 96 Oxygen Delivery Method Oxygen Flow Rate 09/24/23 02:00 09/24/23 03:00 09/24/23 03:02 Temperature 97.3 F L 97.5 F L Pulse Rate 64 65 65 Respiratory Rate 18 15 15 Blood Pressure 184/75 H 175/81 H 175/81 H Pulse Oximetry 99 95 97 Oxygen Delivery Method Room Air Oxygen Flow Rate 0 Oxygen Delivery Method Room Air Oxygen Flow Rate 0 Const Other: Awake, alert, oriented HENMT Other: NG tube in place to LIS Eyes Other: EOMI intact Resp Other: Clear to auscultation bilaterally. No wheezing, rales or rhonchi Cardio Other: Regular rate and rhythm, no murmurs GI Other: Soft, protuberant, nontender, bowel sounds present Neuro Other: CN II-XII grossly intact, no focal deficits Objective Labs 09/23/23 19:08 09/23/23 19:08 Labs: Laboratory Results - last 24 hr 09/23/23 09/23/23 19:08 20:50 WBC 11.4 H RBC 4.89 Hgb 16.0 Hct 47.2 MCV 96.4 MCH 32.7 MCHC 33.9 RDW 13.5 Plt Count 204 Neut % (Auto) 87.7 H Lymph % (Auto) 5.0 L [place] % (Auto) 7.0 Eos % (Auto) 0.1 L Baso % (Auto) 0.2 Neut # (Auto) 73812 H Lymph # (Auto) 600 L [place] # (Auto) 800 Eos # (Auto) 0 Baso # (Auto) 0 Sodium 135 L Potassium 4.4 Chloride 98 Carbon Dioxide 29 BUN 20 Creatinine 0.89 Estimated GFR > 60 BUN/Creatinine Ratio 22.5 H Glucose 106 Calcium 9.8 Total Bilirubin 1.1 AST 37 ALT 19 Alkaline Phosphatase 57 Total Protein 8.3 H Albumin 4.9 Globulin 3.4 Albumin/Globulin Ratio 1.4 Lipase 55 Urine RBC None seen Urine WBC None seen Ur Squamous Epith Cells 0-1 /hpf Amorphous Sediment 2+ Urine Bacteria None seen Ur Culture Indicated? Cult not indicated Vol Urine Centrifuged 10ml (spun) Assessment & Plan Assessment & Plan narrative: Small bowel obstruction - Present on admission, CT showed findings suggestive of the same with suspected transition point at the left mid abdomen - Will keep NPO, NGT was placed in ER and will be to low intermittent suction - Dr. Patton was consulted by ER for surgery evaluation Leukocytosis - Reactive with WBC 11.4, will monitor Hypertension - Chronic, will monitor with PRN hydralazine while NPO Bifascicular block - Per prior records, will monitor on telemetry FEN: NPO, D5 NS at 75 mL/hr GI prophylaxis: Famotidine DVT prophylaxis: SCDS to bilateral lower extremities Code status: Full code - Emergency contact is his Jessenia Garcia Dispo: Admit to Medical Unit with telemetry Quality VTE Deep Vein Thrombosis/Pulmonary Embolism Present on Admission: No
[2023-09-24 05:47] LABS: Add Manual Diff / Slide Review NO; Basophils Absolute Auto 0 /uL (0-100); Basophils Percent Auto 0.2 % (0-2); Eosinophils Absolute Auto 0 /uL (0-450); Hematocrit 44.7 % (41-53); Lymphocytes Absolute Auto 200 /uL (1100-4500); Lymphocytes Percent Auto 2.1 % (25-40); Mean Corpuscular HGB Conc 33.6 % (30-36); Mean Corpuscular Hemoglobin 32.2 PG (26-34); Monocytes Absolute Auto 800 /uL (0-900); Monocytes Percent Auto 6.8 % (3-14); Neutrophils Absolute Auto 10200 /uL (1500-7000); Neutrophils Percent Auto 90.9 % (50-75); Platelet Count 187 X10^3/uL (150-400); Red Blood Cell Count 4.65 X10^6/uL (4.5-5.9); Red Cell Distribution Width 13.7 % (11.6-14.8); White Blood Cell Count 11.3 X10^3/uL (4.5-11.0)
--- NOTE | 2023-09-24 05:59 | PC.NURSE ---
Admit/NOC Shift Note- patient arrived to room via stretcher from ER at 0300. Patient walked from stretcher in all to bed and to bathroom on his own with note3d steady gait. Patient alert and oriented and able to make needs known to staff. Admit questions done, medications reviewed, physiucal assessment done, and skin check completed. NG set too L.I.S.. SCDs placed bilateral calfs. Patient oriented to bed and bed controls, room, bathroom, phone, lights, menu, and call de león/TV remote. Safety measures in place. Patient agrees to call for assistance. Call de león within reach. Will continue to monitor.
[2023-09-24 06:10] LABS: BUN Creatinine Ratio 23.1 (6-22); Blood Urea Nitrogen 18 mg/dL (9-20); Calcium 8.6 mg/dL (8.4-10.2); Carbon Dioxide 28 mmol/L (22-32); Chloride 102 mmol/L (98-107); Estimated Glomerular Filt Rate > 60 mL/min (>60); Glucose 141 mg/dL (80-110); HEMOLYSIS < 15 (0-50); Potassium 4.3 mmol/L (3.4-5.1); Sodium 133 mmol/L (137-145)
--- NOTE | 2023-09-24 08:37 | P.HP_ITS ---
History of Present Illness History of Present Illness Chief complaint: abd pain Narrative: From overnight provider: This patient is a 78 year old male with HTN and bifascicular block who presented to the ER for abdominal pain which had been ongoing for 2 days. He reports severe burning pain for which he tried Tums without relief and states that he has some relief with Flaca seltzer. He denies any exacerbating factors or prior episodes. In the ER, temperature was 98, pulse 62, respirations 18, blood pressure 178/77 and O2 saturation 96% on room air. WBC was 11.4, Hb 16, Hct 47.2, Plt 204, BUN 20, creatinine 0.89, glucose 106. CT abd/pelvis showed findings consistent with a small bowel obstruction with suspicion for a transition point at the left mid abdomen. He is admitted for further medical management and monitoring. Gen surg going to perform ex lap today due to no apparent reason for SBO. Patient not having any gas and NG output has been almost a liter. [facility] Medical History (Updated 09/24/23 @ 00:41 by Lizbeth Kidd MD) Bifascicular block Hypertension Social History household members: spouse Smoking Status: Never smoker alcohol intake: current additional social history: Lives at home with . Ambulatory without assistance. Code status: Full code. Emergency contact is his Jessenia Garcia . Meds Home Medications and Allergies Home Medications Medication Instructions Recorded Confirmed Type metoprolol succinate 25 mg 25 mg PO DAILY 09/24/23 09/24/23 History tablet,extended release 24 hr Allergies Allergy/AdvReac Type Severity Reaction Status Date / Time No Known Drug Allergies Allergy Verified 09/23/23 19:09 Review of Systems Constitutional Comments: Denies any fever, chills or sweats Eyes Comments: Denies any vision changes Cardiovascular Comments: Denies any chest pain or palpitations Respiratory Comments: Denies any shortness of breath, cough or wheezing Gastrointestinal Comments: Reports abdominal pain, nausea. No vomiting, diarrhea, constipation or blood in the stool. Genitourinary Comments: Denies any dysuria or hematuria. Musculoskeletal Comments: Denies any myalgias or arthralgias Exam Vital Signs (past 8 hours): - 09/24/23 02:00 09/24/23 03:00 09/24/23 03:02 Temperature 97.3 F L 97.5 F L Pulse Rate 64 65 65 Respiratory Rate 18 15 15 Blood Pressure 184/75 H 175/81 H 175/81 H Pulse Oximetry 99 95 97 Oxygen Delivery Method Room Air Oxygen Flow Rate 0 09/24/23 03:02 Temperature Pulse Rate Respiratory Rate Blood Pressure Pulse Oximetry Oxygen Delivery Method Room Air Oxygen Flow Rate Oxygen Delivery Method Room Air Oxygen Flow Rate 0 Const Other: Awake, alert, oriented HENMT Other: NG tube in place to LIS Eyes Other: EOMI intact Resp Other: Clear to auscultation bilaterally. No wheezing, rales or rhonchi Cardio Other: Regular rate and rhythm, no murmurs GI Other: Soft, protuberant, nontender, absent to decreased bowel sounds Neuro Other: CN II-XII grossly intact, no focal deficits Objective Labs 09/24/23 05:19 09/24/23 05:19 Labs: Laboratory Results - last 24 hr 09/23/23 09/23/23 09/24/23 19:08 20:50 05:19 WBC 11.4 H 11.3 H RBC 4.89 4.65 Hgb 16.0 15.0 Hct 47.2 44.7 MCV 96.4 96.0 MCH 32.7 32.2 MCHC 33.9 33.6 RDW 13.5 13.7 Plt Count 204 187 Neut % (Auto) 87.7 H 90.9 H Lymph % (Auto) 5.0 L 2.1 L [place] % (Auto) 7.0 6.8 Eos % (Auto) 0.1 L 0.0 L Baso % (Auto) 0.2 0.2 Neut # (Auto) 10112 H 81431 H Lymph # (Auto) 600 L 200 L [place] # (Auto) 800 800 Eos # (Auto) 0 0 Baso # (Auto) 0 0 Sodium 135 L 133 L Potassium 4.4 4.3 Chloride 98 102 Carbon Dioxide 29 28 BUN 20 18 Creatinine 0.89 0.78 Estimated GFR > 60 > 60 BUN/Creatinine Ratio 22.5 H 23.1 H Glucose 106 141 H Calcium 9.8 8.6 Total Bilirubin 1.1 AST 37 ALT 19 Alkaline Phosphatase 57 Total Protein 8.3 H Albumin 4.9 Globulin 3.4 Albumin/Globulin Ratio 1.4 Lipase 55 Urine RBC None seen Urine WBC None seen Ur Squamous Epith Cells 0-1 /hpf Amorphous Sediment 2+ Urine Bacteria None seen Ur Culture Indicated? Cult not indicated Vol Urine Centrifuged 10ml (spun) Assessment & Plan Assessment & Plan narrative: Small bowel obstruction - Present on admission, CT showed findings suggestive of the same with suspected transition point at the left mid abdomen - Will keep NPO, NGT was placed in ER and will be to low intermittent suction - Dr. Hall to perform ex lap today Leukocytosis - Reactive with WBC 11.4, will monitor Hypertension - Chronic, will monitor with PRN IV hydralazine while NPO Bifascicular block - Per prior records, will monitor on telemetry FEN: NPO, D5 NS at 75 mL/hr GI prophylaxis: Famotidine DVT prophylaxis: SCDS to bilateral lower extremities Code status: Full code - Emergency contact is his Jessenia Garcia Dispo: Pending ex lap. Likely 2 days. Quality VTE Deep Vein Thrombosis/Pulmonary Embolism Present on Admission: No
[2023-09-24] MEDS: FAMOTIDINE 20 MG/2 ML VIAL IV (08:39)
--- NOTE | 2023-09-24 09:25 | CM.DANOTE ---
Initial DCP Assessment Visit Note Reviewed EMR and team rounds for pt's medical status and updates. Met with pt and spouse at bedside to introduce self and role. Pt was found to be alert/oriented, sitting upright in bed, and was able to discuss his questions/concerns and plan for d/c home once he's medically cleared. His spouse will plan to transport him back home. Payor: Cheyenne Whittington PCP: Briana García Pt is a 78 year-old M who presented to the ED last evening with c/o progressively worsening abdominal pain, burping, and no BM that began the evening before and was not improved with antacids. CT abd/pelvis showed a small bowel obstruction. Pt was then made NPO, an NG tube was placed, and he was admitted to the floor for monitoring and a plan to meet with surgery (today) for consultation. DCP will continue to follow and assist with any evolving d/c assistance/needs identified for his eventual discharge back home. Discharge Planning/Care Management CM Discharge Assessment Start: 09/24/23 09:20 Freq: Status: Active Protocol: Document 09/24/23 09:21 DPL (Rec: 09/24/23 09:25 DPL [id number]) Discharge Planning Assessment Assigned Media Marketing Manager KERMIT Reyes Advance Directives? No History Provided By Patient Has Patient been admitted in last 30 No days? Prior Living Arrangements House Household Members spouse Type of transporation used prior to Drives own vehicle admit Independent with ADL's Yes Is patient alert and oriented? Yes Comment N/A Caregiver for Another No Comment No identified d/c at this time . Barriers to Discharge No Discharge Plan Home Transportation Arrangement Spouse Referrals Initiated None needed Whiteboard Updated in Patient Room with Yes name and ext. # of Media Marketing Manager Review Status In Process Please Provide Date Initial DC 09/24/23 Assessment Was Performed
--- NOTE | 2023-09-24 11:06 | PM.CN ---
History of Present Illness Consult details Date Patient Seen: 09/24/23 Time Patient Seen: 11:08 Chief complaint: abd pain Narrative: Billy Garcia is a 78-year-old man PMH hypertension who is admitted to [facility] with a small-bowel obstruction. No prior abdominal surgery, no prior colitis or other intestinal problems. He developed abdominal pain yesterday with associated reflux. He then became distended with emesis no flatus over the past 24-48 hours. On admission afebrile WBC 11 with left shift neutrophils 91% Meds Home Medications and Allergies Home Medications Medication Instructions Recorded Confirmed Type metoprolol succinate 25 mg 25 mg PO DAILY 09/24/23 09/24/23 History tablet,extended release 24 hr Allergies Allergy/AdvReac Type Severity Reaction Status Date / Time No Known Drug Allergies Allergy Verified 09/23/23 19:09 Exam Vital Signs (past 8 hours): - 09/24/23 08:00 Temperature 97.3 F L Pulse Rate 61 Respiratory Rate 16 Blood Pressure 143/65 H Pulse Oximetry 96 Oxygen Delivery Method Room Air Oxygen Flow Rate 0 Narrative Exam Narrative: Gen-Elderly man alert and oriented Chest-Non labored resp Abdomen-Distended, compressible. NGT bilious output Objective Labs 09/24/23 05:19 09/24/23 05:19 Labs: Laboratory Results - last 24 hr 09/23/23 09/23/23 09/24/23 19:08 20:50 05:19 WBC 11.4 H 11.3 H RBC 4.89 4.65 Hgb 16.0 15.0 Hct 47.2 44.7 MCV 96.4 96.0 MCH 32.7 32.2 MCHC 33.9 33.6 RDW 13.5 13.7 Plt Count 204 187 Neut % (Auto) 87.7 H 90.9 H Lymph % (Auto) 5.0 L 2.1 L [place] % (Auto) 7.0 6.8 Eos % (Auto) 0.1 L 0.0 L Baso % (Auto) 0.2 0.2 Neut # (Auto) 78048 H 85957 H Lymph # (Auto) 600 L 200 L [place] # (Auto) 800 800 Eos # (Auto) 0 0 Baso # (Auto) 0 0 Sodium 135 L 133 L Potassium 4.4 4.3 Chloride 98 102 Carbon Dioxide 29 28 BUN 20 18 Creatinine 0.89 0.78 Estimated GFR > 60 > 60 BUN/Creatinine Ratio 22.5 H 23.1 H Glucose 106 141 H Calcium 9.8 8.6 Total Bilirubin 1.1 AST 37 ALT 19 Alkaline Phosphatase 57 Total Protein 8.3 H Albumin 4.9 Globulin 3.4 Albumin/Globulin Ratio 1.4 Lipase 55 Urine RBC None seen Urine WBC None seen Ur Squamous Epith Cells 0-1 /hpf Amorphous Sediment 2+ Urine Bacteria None seen Ur Culture Indicated? Cult not indicated Vol Urine Centrifuged 10ml (spun) [facility] Medical History (Updated 09/24/23 @ 00:41 by Lizbeth Kidd MD) Bifascicular block Hypertension Social History household members: spouse Tobacco & Substance Use Smoking Status: Never smoker alcohol intake: current Additional Social History additional social history: Lives at home with . Ambulatory without assistance. Code status: Full code. Emergency contact is his Jessenia Garcia . Assessment & Plan Assessment and plan (1) Small bowel obstruction: Status: Acute Assessment & Plan narrative: 78-year-old man H hypertension with no prior abdominal surgery admitted with a small-bowel obstruction. CT abdomen pelvis and laboratory studies personally reviewed and notable for a fairly clear transition point in the left upper quadrant and left shift on CBC. We discussed the nature of bowel obstruction its causes and treatment/management. Current options including further observation with conservative measures versus diagnostic laparoscopy. We discussed the risks benefits of both. Following discussion his preference is to proceed with diagnostic laparoscopy. Overview of the operation discussed. Operative risks including hemorrhage, infection, damage to surrounding structures, anastamotic leak. His questions have been answered and he elects to proceed with diagnostic laparoscopy possible laparotomy, possible bowel resection.
[2023-09-24] MEDS: PIPERACILLIN/TAZO 3.375 GM in SODIUM CHLORIDE 0.9% 100 ML IV (19:10)
--- NOTE | 2023-09-24 19:30 | SUR.OPER ---
Supine on padded OR bed, head on pillow, arms secured on padded arm boards at <90 degrees abduction, legs uncrossed, safety belt at thigh, tape over blanket over lower legs.
[2023-09-24] MEDS: BUPIVACAINE 0.25% (PF) VIAL 30 ML INJ (19:57)
--- NOTE | 2023-09-24 20:22 | DI.RAD.S_ITS ---
PROCEDURE: XR ABDOMEN 1V INDICATIONS: FINAL COUNT INCORRECT, MAKING SURE NO SUTURES ARE IN ABDOMEN TECHNIQUE: One lateral view of the abdomen acquired. COMPARISON: None. FINDINGS: Surgical changes and devices: None. Bowel: Bowel gas pattern is nonobstructive. Soft tissues: No suspicious abdominal calcifications. Visualized solid organ contours appear normal in size. No radiopaque soft tissue foreign bodies. Bones: No suspicious bony lesions. IMPRESSION: No radiopaque soft tissue foreign bodies. Dictated by: Tommy Francis M.D. on 09/24/2023 at 21:03 Approved by: Tommy Francis M.D. on 09/24/2023 at 21:04
--- NOTE | 2023-09-24 20:34 | PM.OP.1 ---
Operative Date/Time/Diagnoses Date of procedure: 09/24/23 Time of procedure: 20:34 Pre-op diagnosis: Small-bowel obstruction Post-op diagnosis: other (Small-bowel obstruction. Small-bowel volvulus) Procedure & Clinicians Procedure: Diagnostic laparoscopy Exploratory laparotomy Enterectomy Same procedure as scheduled: Yes Indications: Billy is a 78-year-old man with no previous abdominal surgery who presents with a small-bowel obstruction and a clear transition point in the left upper quadrant. After failing to progress with conservative measures he elects to proceed to the operating room. Surgeon: Patric Hall Click Yes if Unassisted: Yes Anesthesia Type: General Operative Notes Findings: Mid small bowel volvulus. There is a clear defined point of chronic narrowing upon which the volvulus has occurred. Specimen(s): other (Small-bowel) Estimated Blood Loss (mL): 50 Procedure in detail: Patient was brought to the operating room placed supine on the table. Bilateral lower extremity compression devices were applied. General anesthesia was induced and he was intubated with an endotracheal tube in rapid sequence fashion. Suarez catheter was sterilely placed. He was then prepped and draped in sterile fashion. Time-out performed. A infraumbilical incision was made and the abdomen was entered atraumatically. A 12 mm balloon trocar was then placed into the abdomen and pneumoperitoneum was established at 15 mm. A general inspection of the abdomen was made. There were numerous dilated loops of small bowel as well as some serous fluid within the pelvis. The small bowel was run and we identified a point in the mid small bowel which was the area of transition it could not be reduced laparoscopically. The procedure was then converted open. An upper midline incision was made the abdomen was entered and a Mynor retractor was placed. The small bowel was eviscerated. Manually I detorsion a small-bowel volvulus. The bowel was ischemic but its color improved with detorsion. On close inspection there was a clear demarcation upon which the volvulus had occurred and it appeared to be chronically strictured. Concern that this could reoccur at this point we proceeded with a small-bowel resection. Window within the mesentery on either side of the segment was made and the small bowel was divided using the linear ESME stapler. 75 mm blue load. The 2 ends were then joined in [id number] fashion functionally end and anastomosis. A crotch stitch of silk was placed. An enterotomy in each limb was made and then a 3rd staple load was used to create a common channel. The common channel was inspected it was widely patent and hemostatic. The common opening was then closed then running fashion using 3-0 PDS suture. The suture line was then imbricated using silk suture. The mesenteric defect was closed. The small bowel was then run twice in its entirety from the ligament of Treitz to the terminal ileum and there were no other other points of pathology. The bowel was then returned to the abdomen which was then lavaged with 2 L of saline and returned clean. The fascia was then closed with PDS suture followed by Vicryl within the subcutaneous tissue and javier. The patient tolerated the operation well and was returned to recovery in stable condition following extubation. Complications: none Post-operative Condition: stable Disposition: Acute Care
[2023-09-24] MEDS: ACETAMINOPHEN 325 MG TABLET 650 MG PO (22:32)
[2023-09-25 00:05] VITALS: BP 112/55; PULSE 55; RESP 18; O2SAT 96
[2023-09-25 05:15] VITALS: BP 142/64; PULSE 67; RESP 16; TEMP 36.2; O2SAT 92
[2023-09-25] MEDS: ACETAMINOPHEN 325 MG TABLET 650 MG PO (06:09)
[2023-09-25 06:10] LABS: Add Manual Diff / Slide Review NO; Basophils Absolute Auto 0 /uL (0-100); Eosinophils Absolute Auto 0 /uL (0-450); Hematocrit 44.6 % (41-53); Lymphocytes Absolute Auto 300 /uL (1100-4500); Lymphocytes Percent Auto 2.6 % (25-40); Mean Corpuscular HGB Conc 33.7 % (30-36); Mean Corpuscular Hemoglobin 32.8 PG (26-34); Mean Corpuscular Volume 97.4 fL (80-100); Monocytes Absolute Auto 500 /uL (0-900); Monocytes Percent Auto 5.3 % (3-14); Neutrophils Absolute Auto 9000 /uL (1500-7000); Neutrophils Percent Auto 92.1 % (50-75); Platelet Count 159 X10^3/uL (150-400); Red Blood Cell Count 4.58 X10^6/uL (4.5-5.9); Red Cell Distribution Width 13.5 % (11.6-14.8); White Blood Cell Count 9.8 X10^3/uL (4.5-11.0)
[2023-09-25 06:18] LABS: BUN Creatinine Ratio 22.4 (6-22); Blood Urea Nitrogen 19 mg/dL (9-20); Calcium 7.9 mg/dL (8.4-10.2); Carbon Dioxide 26 mmol/L (22-32); Chloride 107 mmol/L (98-107); Estimated Glomerular Filt Rate > 60 mL/min (>60); Glucose 125 mg/dL (80-110); HEMOLYSIS < 15 (0-50); Potassium 4.1 mmol/L (3.4-5.1); Sodium 135 mmol/L (137-145)
[2023-09-25 08:00] VITALS: BP 124/60; PULSE 74; RESP 16; TEMP 36.9; O2SAT 98
[2023-09-25] MEDS: HYDROMORPHONE 0.5 MG INJ IV ×2 (08:04→12:28)
[2023-09-25] MEDS: FAMOTIDINE 20 MG/2 ML VIAL IV (10:30)
--- NOTE | 2023-09-25 11:39 | PT.IIE ---
Addendum entered and electronically signed by Larissa Queen PT 09/25/23 11:42: PT provides direct superv to SPT during evaluation Original Note: Current Diagnoses Unspecified intestinal obstruction, unspecified as to partial versus complete obstruction (09/24/23) Surgery Performed Operation Date: 09/24/23 16:30 Actual Procedures p Laparoscopy, Diagnostic, GEN, LAPAROTOMY - Patric Hall MD Medical History (Last Updated 09/23/23 @ 19:33 by Lizbeth Kidd MD) Bifascicular block Hypertension Physical Therapy Inpatient Evaluation/Re-Eval M1 PT/OT-IP Prior Functional Status Start: 09/25/23 08:23 Freq: NEEDED Status: Active Protocol: Document 09/25/23 09:35 JG (Rec: 09/25/23 11:13 DONA [id number]) Medical Review Prior Functional Status Medical History Reviewed Yes Communication WNL Mobility and Gait Pt was I with mobility and gait at baseline Activities of Daily Living and IADL's I and active with ADL's and particpates in physical activity and walking daily Social History Household Members spouse Living Arrangements House Number of Floors (Floors) One Floor Number of Stairs To Enter/Railing? 2 Home Environment Standard Height Toilet,Walk in Shower,Built-In Shower Seat Employment Status Retired Additional Social History Comment Pt maite I have a when asked about DME M2 PT-IP Current Condition Start: 09/25/23 08:23 Freq: NEEDED Status: Active Protocol: Document 09/25/23 09:35 JEddie (Rec: 09/25/23 11:13 DONA [id number]) Physical Therapy Current Condition Current Condition Evaluation Date 09/25/23 Treatment Diagnosis Small bowl obstruction s/p surgery Onset Date 09/24/23 M3 PT-IP Subjective Start: 09/25/23 08:23 Freq: NEEDED Status: Active Protocol: Document 09/25/23 09:35 JG (Rec: 09/25/23 11:13 DONA [id number]) Subjective Physical Therapy Visit Type Type Initial Evaluation Visit Start Time 09:35 Visit Stop Time 10:09 Number of TRUCK DRIVER Visits 0 Physical Therapy Visit Comments Patient Comments Pt states that he is not feeling any pain and has some pressure noted around incison Patient Goals Pt wants to get back to lifting weights and phsyical activity Therapy Pain Assessment Pain When Pain Assessed During Mobility Pain Present Pain Present Denied Pain M4 PT-IP Mobility and Gait Start: 09/25/23 08:23 Freq: NEEDED Status: Active Protocol: Document 09/25/23 09:35 DONA (Rec: 09/25/23 11:13 DONA [id number]) PT-Bed Mobility Assessment Rolling Type of Rolling Log Rolling,Roll to Left Level of Assist Independent,Standby Assistance Supine to Sit Supine to Sit Independent Sit to Supine Sit to Supine Independent,Standby Assistance Scooting Scooting to Edge of Bed Independent Scooting Up and Down in Bed Independent PT-Transfer Assessment Sit to and From Stand Sit to and from Stand Independent,Standby Assistance Equipment Transfer Assistive Device Gait Belt Orthotic/Prosthetic Devices or Brace: No Transfers Transfer Destination Bed,Chair Transfer Technique Ambulation Transfer Ability Level of Assist Independent,Standby Assistance Comments Mobility Comments Pt is SBA to I (after many trials) with transfers and all bed mobility. Pt showed good understanding of safety precautions while moving. Pt used head of bed rail during log roll and was cued to try to limit use of bedrail due to home set-up Gait Assessment Gait Gait Assistance Required: Independent,Standby Assistance Distance (Feet) 225 Able to Maintain Weight Bearing Status Yes During Gait Assistive Devices Assistive Device Gait Belt Orthotic/Prosthetic Devices or Brace: No Gait Deviations General Gait Pattern Antalgic Factors Limiting Gait Function Factors Limiting Gait Function Poor Balance Comments Gait Comments Pt performed gait with SBA initially and then I with increased gait distance. Backwards walking and turns and side stepping were slower and no LOB Stair Climbing Assessment Evaluation Level of Assist On Stairs Contact Guard Assistance Technique/Endurance Stair Climbing Direction Ascend and Descend Stair Climbing Technique Step Over Step Number of Steps Climbed 3 Query Text: Stair Climbing Set # Repetitions (reps) 1 Comments Stair Climbing Comments Pt performed ascending and descending steps with CGA. Pt utlized PT's hand to mimic 's hand when he returns home as this is how he states he does this. PT-Balance Assessment Sitting Balance and Reactions Static Sitting Balance Ability Normal Dynamic Sitting Balance Ability Normal Standing Balance and Reactions Static Standing Balance Ability Normal Dynamic Standing Balance Ability Good Comments Other Balance Tests/Deviations/Treatment Pt performed backwards walking : for 15 ft, side stepping for 10 ft and dynamic weight shifts in standing M5 PT-IP Objective Assessments Start: 09/25/23 08:23 Freq: NEEDED Status: Active Protocol: Document 09/25/23 09:35 JG (Rec: 09/25/23 11:13 JG [id number]) Orientation Orientation/Cognition Level of Alertness Alert Orientation Name,Age,Birthday,Month,Date, Year,Day of Week,Place, Situation Language Function Ability No Deficits Noted Safety Awareness Understands Safety Issues Memory Description No Deficits Noted Gross Range of Motion Upper Extremity ROM Assessment Within Functional Limits Lower Extremity ROM Assessment Within Functional Limits Strength Upper Extremity Strength Assessment Within Functional Limits Lower Extremity Strength Assessment Within Functional Limits M6 PT-IP Treatment Start: 09/25/23 08:23 Freq: NEEDED Status: Active Protocol: Document 09/25/23 09:35 JG (Rec: 09/25/23 11:13 J [id number]) Physical Therapy Treatment Education Education Provided Precautions,Post-Op Packet, Safety M7 PT-IP Assessment and Plan Start: 09/25/23 08:23 Freq: NEEDED Status: Active Protocol: Document 09/25/23 09:35 JG (Rec: 09/25/23 11:13 J [id number]) PT Summary Assessment and Plan Potential Rehabilitation Potential Excellent Status of Condition at Evaluation Stable Summary Assessment Summary Pt is a 78 y/o male that presents s/p abdominal laproscopy. Pt was an acitive individual pre-op and was up and walking with walker on own upon arrival. He is Cogx4 and was educated and able to recall safety precautions in post-op packet. Pt reported a 0.5 level pain on a 1/10 pain scale and mentioned slight pressure and tightness around incision area. Pt reviewed log rolling technique with PT and demonstrated SBA then I for transfers and needed v/c to keep hands off of bed rails to mimic home set-up. Pt reported having 2 steps to enter home with out railing and that was going assist . Pt was able to perform stair training with PT hand for support to mimic support at home. Pt demonstrated decreased balance during gait and required SBA to I. Upon d/ c pt will be going home with assistance from . Recommend up walking with nsg staff. Frequency of Treatment Frequency Of Treatment Discharge Precautions Abdominal Surgery Precautions Log Roll,Lifting Restrictions, Gait Belt above Incisional Area Weight Bearing Status Weight Bearing Status Weight Bear as Tolerated Recommendations To Nursing Amount of Assist Needed Standby Assistance Discharge Recommendations PT Discharge Recommendations Home with Assistance Other Discharge Recommendations Pt will return home with for assistance upon d/c Transportation Needs at Discharge Private Vehicle
--- NOTE | 2023-09-25 11:54 | CM.DPC ---
DCP Cont. Reviewed EMR and team rounds for status updates. Per Hospitalist, pt has high potassium and kidney function, not yet medically stable for d/c. Pt was also made non-weightbearing status today by Dr. Wells. Will continue to follow for readiness back to [facility].
[2023-09-25 12:00] VITALS: BP 119/54; PULSE 67; RESP 16; TEMP 36.9; O2SAT 99
--- NOTE | 2023-09-25 13:13 | PM.PN.1 ---
Subjective Subjective Interval history: 78 M admitted with bowel obstruction, s/p diagnostic laparoscopy converted to open with small bowel resection due to strictured small bowel. Tolerating clears this morning, quite a bit of pain but improved with IV and oral medications. No nausea, no gas this AM. Exam Vital Signs (past 8 hours): - 09/25/23 05:15 09/25/23 08:00 09/25/23 12:00 Temperature 97.2 F L 98.4 F 98.5 F Pulse Rate 67 74 67 Respiratory Rate 16 16 16 Blood Pressure 142/64 H 124/60 119/54 L Pulse Oximetry 92 98 99 Oxygen Flow Rate 0 Oxygen Delivery Method Room Air Oxygen Flow Rate 0 Narrative Exam Narrative: Gen: NAD WDWN CV RRR no m/r/g Pulm CTA b/l Abd: S appropriately tender mild distension Ext: no edema. Objective Labs 09/25/23 05:47 09/25/23 05:47 Labs: Laboratory Results - last 24 hr 09/25/23 05:47 WBC 9.8 RBC 4.58 Hgb 15.0 Hct 44.6 MCV 97.4 MCH 32.8 MCHC 33.7 RDW 13.5 Plt Count 159 Neut % (Auto) 92.1 H Lymph % (Auto) 2.6 L [place] % (Auto) 5.3 Eos % (Auto) 0.0 L Baso % (Auto) 0.0 Neut # (Auto) 9000 H Lymph # (Auto) 300 L Major # (Auto) 500 Eos # (Auto) 0 Baso # (Auto) 0 Sodium 135 L Potassium 4.1 Chloride 107 Carbon Dioxide 26 BUN 19 Creatinine 0.85 Estimated GFR > 60 BUN/Creatinine Ratio 22.4 H Glucose 125 H Calcium 7.9 L PFSH Medical History (Updated 09/24/23 @ 00:41 by Lizbeth Kidd MD) Bifascicular block Hypertension Social History household members: spouse Smoking Status: Never smoker alcohol intake: current additional social history: Lives at home with . Ambulatory without assistance. Code status: Full code. Emergency contact is his Jessenia Garcia . Assessment & Plan Assessment & Plan narrative: Small bowel obstruction POD#1 small bowel resection - Present on admission, CT showed findings suggestive of the same with suspected transition point at the left mid abdomen - POD #1 today s/p bowel resection - continue pain control, advance diet as tolerated. Okay with full liquids this afternoon, will order for regular breakfast. - discussed with surgeon today. Leukocytosis - likely reactive, continue to monitor, resolved today. Hypertension - Chronic, will monitor with PRN IV hydralazine for now - controlled today, continue to hold home medications Bifascicular block -okay to discontinue telemetry today. FEN: D5 NS at 75 mL/hr will continue for today, possible stop tomorrow if tolerating diet. GI prophylaxis: Famotidine DVT prophylaxis: SCDS to bilateral lower extremities Code status: Full code - Emergency contact is his Jessenia Garcia Dispo: Possible home tomorrow, depending on recovery after bowel resection yesterday. Quality VTE Deep Vein Thrombosis/Pulmonary Embolism Present on Admission: No
[2023-09-25] MEDS: HYDROMORPHONE 2 MG TABLET PO ×2 (16:30→21:53)
[2023-09-25] MEDS: DEXTROSE 5%-0.9% NS 1,000 ML 75 ML IV ×2 (16:32→23:16)
[2023-09-25 19:00] VITALS: BP 158/77; PULSE 70; RESP 18; TEMP 36.6; O2SAT 70
--- NOTE | 2023-09-25 19:29 | PC.NURSE ---
Patient had Suarez dc'd today at 0600 a.m. by noc shift. Patient unable to void at 1300. bladder scann revealed 7cc, MD alerted will continue to monitor. At 1850 patient voided Very small amount PVR =20cc. Per MD no need to straight cath unless PVR >300cc
--- NOTE | 2023-09-25 19:37 | P.PN_ITS ---
Subjective Subjective Date Patient Seen: 09/25/23 Time Patient Seen: 19:37 Interval history: No acute events Tolerating liquids and + flatus no nausea Exam Vital Signs (past 8 hours): - 09/25/23 12:00 Temperature 98.5 F Pulse Rate 67 Respiratory Rate 16 Blood Pressure 119/54 L Pulse Oximetry 99 Oxygen Delivery Method Room Air Oxygen Flow Rate 0 Narrative Exam Narrative: Gen-Elderly man alert and oriented Abdomen-Soft appropriately tender to palpation Objective Labs 09/25/23 05:47 09/25/23 05:47 Labs: Laboratory Results - last 24 hr 09/25/23 05:47 WBC 9.8 RBC 4.58 Hgb 15.0 Hct 44.6 MCV 97.4 MCH 32.8 MCHC 33.7 RDW 13.5 Plt Count 159 Neut % (Auto) 92.1 H Lymph % (Auto) 2.6 L [place] % (Auto) 5.3 Eos % (Auto) 0.0 L Baso % (Auto) 0.0 Neut # (Auto) 9000 H Lymph # (Auto) 300 L [place] # (Auto) 500 Eos # (Auto) 0 Baso # (Auto) 0 Sodium 135 L Potassium 4.1 Chloride 107 Carbon Dioxide 26 BUN 19 Creatinine 0.85 Estimated GFR > 60 BUN/Creatinine Ratio 22.4 H Glucose 125 H Calcium 7.9 L PFSH Medical History (Updated 09/24/23 @ 00:41 by Lizbeth Kidd MD) Bifascicular block Hypertension Social History household members: spouse Smoking Status: Never smoker alcohol intake: current additional social history: Lives at home with . Ambulatory without assistance. Code status: Full code. Emergency contact is his Jessenia Garcia . Assessment & Plan Post-op Postoperative Procedures: Procedures Operation Date: 09/24/23 16:30 Actual Procedure Side Surgeon p Laparoscopy, Diagnostic, GEN, LAPAROTOMY Patric Hall MD Postoperative status narrative: 78M POD 1 sp exlap small bowel resection for small bowel volvulus. -Advance diet as tolerated -SCDs -Lovenox -Anticipate DC home tomorrow Quality VTE Deep Vein Thrombosis/Pulmonary Embolism Present on Admission: No
[2023-09-26] MEDS: HYDROMORPHONE 2 MG TABLET PO ×2 (03:54→08:40)
[2023-09-26 08:00] VITALS: BP 140/81; PULSE 86; RESP 16; TEMP 36.2; O2SAT 98
[2023-09-26] MEDS: FAMOTIDINE 20 MG/2 ML VIAL IV (08:41)
--- NOTE | 2023-09-26 09:08 | PM.PNPO.1 ---
Subjective Subjective Date Patient Seen: 09/26/23 Time Patient Seen: 09:08 Interval history: no acute events tolerating reg diet + flatus Exam Vital Signs (past 8 hours): Oxygen Delivery Method Room Air Oxygen Flow Rate 0 Narrative Exam Narrative: Gen-Elderly man alert and oriented Objective Labs 09/25/23 05:47 09/25/23 05:47 [facility] Medical History (Updated 09/24/23 @ 00:41 by Lizbeth Kidd MD) Bifascicular block Hypertension Social History household members: spouse Smoking Status: Never smoker alcohol intake: current additional social history: Lives at home with . Ambulatory without assistance. Code status: Full code. Emergency contact is his Jessenia Garcia . Assessment & Plan Post-op Postoperative Procedures: Procedures Operation Date: 09/24/23 16:30 Actual Procedure Side Surgeon p Laparoscopy, Diagnostic, GEN, LAPAROTOMY Patric Hall MD Postoperative status narrative: Ok to dc from surgical perspective Remove dressing Friday then Ok to leave open to air or gauze over incision Ok to shower No lifting >10 lbs x 4 weeks 2 week f/u with surgery Quality VTE Deep Vein Thrombosis/Pulmonary Embolism Present on Admission: No
--- NOTE | 2023-09-26 10:27 | PM.DS.1 ---
History of Present Illness History of Present Illness Date Patient Seen: 09/26/23 Time Patient Seen: 10:27 Chief complaint: abd pain Narrative: From overnight provider: This patient is a 78 year old male with HTN and bifascicular block who presented to the ER for abdominal pain which had been ongoing for 2 days. He reports severe burning pain for which he tried Tums without relief and states that he has some relief with Flaca seltzer. He denies any exacerbating factors or prior episodes. In the ER, temperature was 98, pulse 62, respirations 18, blood pressure 178/77 and O2 saturation 96% on room air. WBC was 11.4, Hb 16, Hct 47.2, Plt 204, BUN 20, creatinine 0.89, glucose 106. CT abd/pelvis showed findings consistent with a small bowel obstruction with suspicion for a transition point at the left mid abdomen. He is admitted for further medical management and monitoring. Gen surg going to perform ex lap today due to no apparent reason for SBO. Patient not having any gas and NG output has been almost a liter. Discharge Providers Provider Date of admission: 09/24/23 02:19 Discharge Date: 09/26/23 Primary care physician: Braina García MD Consults: 09/24/23 02:08 Consult to General Surgery Stat Comment: Consulting Provider: Geovanni Patton Reason for consultation: SBO Has provider been notified: Yes 09/24/23 21:38 Consult to Physical Therapy Evaluate & Treat Comment: Physician Instructions: Evaluate and Treat Discharge provider: Jordan Duran DO Summary Hospital Course Discharge Diagnosis: Small bowel obstruction requiring operative small bowel resection Leukocytosis,reactive Hypertension Bifascicular block Hospital Course: 78 year old male admitted with bowel obstruction, which did not resolve with conservative measures. He was taken to the operating room, had an ex-lap with small bowel resection for strictured small bowel. He tolerated the procedure well, and was able to tolerate a diet on POD#2. He was passing some small amounts of gas, but had not had a bowel movement. His pain was controlled, and he was discharged home with a few doses of pain medication and anti-nauseal medication. His home metoprolol was resumed. No other changes to home medications were recommended on discharge. Time Spent with Patient Time spent: Less than 30 minutes Exam Vital Signs (past 8 hours): - 06/21/24 08:00 Temperature 97.1 F L Pulse Rate 86 Respiratory Rate 16 Blood Pressure 140/81 Pulse Oximetry 98 Oxygen Delivery Method Room Air Oxygen Flow Rate 0 Narrative Exam Narrative: Gen: NAD WDWN CV RRR no m/r/g Pulm CTA b/l Abd: S appropriately tender mild distension Ext: no edema. Objective Labs 09/25/23 05:47 09/25/23 05:47 PFSH Medical History (Updated 09/24/23 @ 00:41 by Lizbeth Kidd MD) Bifascicular block Hypertension Social History household members: spouse Smoking Status: Never smoker alcohol intake: current additional social history: Lives at home with . Ambulatory without assistance. Code status: Full code. Emergency contact is his Jessenia Garcia . Discharge Plan Discharge Plan Patient Disposition: Home Provider Discharge Comment: You were admitted to the hospital with a bowel obstruction. This required surgery and removal of a small portion of your small intestine. Continue previous medications without change, added nausea and pain medications which were sent to your pharmacy. Please call surgery clinic to schedule post operative follow up. Discharge orders & Medications Prescriptions: New hydromorphone 2 mg tablet 2 mg PO Q6H PRN (Reason: pain) 7 Days Qty: 20 0RF ondansetron HCl 4 mg tablet 4 mg PO Q8H PRN (Reason: nausea and vomiting) 30 Days Qty: 30 0RF Continued metoprolol succinate 25 mg Tablet Extended Release 24 Hr 25 mg PO DAILY Follow up/Referrals: Briana García MD [Primary Care Provider] - Geovanni Patton MD [Physician] - 2 Weeks Diet/Activity/Treatments Diet: Diet as Tolerated and Regular Activity: No heavy lifting 10-15lb restriction for at least 4-6 weeks. Visit Report/Discharge Packet Instructions: DI for Small Bowel Resection, [facility]: Wound Care Stand Alone Forms: Patient Portal/API, Stroke Signs & Symptoms Discharge Data Primary Care Provider: Briana García Quality VTE Deep Vein Thrombosis/Pulmonary Embolism Present on Admission: No
--- NOTE | 2023-09-26 11:21 | PC.NURSE ---
Patient is A&OX4, VSS, afebrile on RA. He reports voiding large amount without difficulty. BS hypoactive x4, and he reports a small amount of flatus. He ambulates the [place] independently with and tolerates a regular /general diet tray at breakfast this a.m. He is cleared from surgery for discharge home today and cleared by hospitalist to discharge home today. He verbalizes understanding of site care, activity limiations, s/sx of infection as well as 2 week follow up appointment with MD Hall. He is escorted by RN out to private vehicle with at 11 a.m. with all of his personal belongings for discharge home today
== END 2023-09-26 11:00 | disposition home or self-care (01) | DRG 329 ==
LOC: ED 09-24 00:41 → AC 09-24 02:20
PROVIDERS: Surgery; Admitting Provider Internal Medicine; Emergency Provider Emergency Medicine; PCP Internal Medicine; Referring Provider Emergency Medicine; Visit Provider Internal Medicine
PROC: 0DB80ZZ Excision of Small Intestine, Open Approach (ICD-10-PCS; CPT 49320; principal; 2023-09-24 16:30)
DX: K56.609 Unspecified intestinal obstruction, unspecified as to partial versus complete obstruction (principal); K55.019 Acute (reversible) ischemia of small intestine, extent unspecified; I45.2 Bifascicular block; K55.9 Vascular disorder of intestine, unspecified; I10 Essential (primary) hypertension; K56.2 Volvulus
CPT/HCPCS: 36415; 44120; 71045; 74018; 74177; 80048; 80053; 81003; 81015; 82962; 83690; 85025; 93005; 96374; 97116; 97161; 99233; 99284; 99285; J1100; J1170; J1885; J2405; J2543; J2704; Q9967

== ENCOUNTER → 2024-07-13 11:41 | Outpatient (CLI) | payer OTHER, SELFPAY ==
[2023-09-24 03:02] VITALS: BMI 23.1
== END ==
PROVIDERS: Referring Provider Urology; Visit Provider Urology
DX: N40.1 Benign prostatic hyperplasia with lower urinary tract symptoms (principal)
CPT/HCPCS: 87086